=== PATIENT | male | born 1955 | race Caucasian/White ===

== ENCOUNTER 2017-03-28 04:39 | Emergency (ER) | payer BC, SELFPAY ==
[2017-03-28] MEDS ORDERED: Acetaminophen 500 MG TAB ONE (05:40)
--- NOTE | 2017-03-28 08:02 | RAD ---
SINGLE VIEW OF THE CHEST: COMPARISON: None. HISTORY: Chest trauma with chest pain. FINDINGS: Single view of the chest shows a normal sized cardiomediastinal silhouette. There is no evidence of c onsolidation, mass, or pleural effusion. The bones are unremarkable. IMPRESSION: No evidence of acute cardiopulmonary disease. POS: OFF
--- NOTE | 2017-03-28 08:56 | RAD ---
THREE VIEWS LEFT SHOULDER: COMPARISON: None. HISTORY: Left shoulder pain after trauma. FINDINGS: Three views of the left shoulder show no evidence of acute fracture or dislocation. There are mild d egenerative changes in the glenohumeral and acromioclavicular joints. The visualized left thorax is unremarkable. IMPRESSION: Mild left shoulder degenerative change without acute osseous abnormality. POS: OFF
== END 2017-03-28 06:05 | disposition home or self-care (01) ==
LOC: ERS 04:39
DX: S46.912A Strain of unspecified muscle, fascia and tendon at shoulder and upper arm level, left arm, initial encounter (principal); E11.9 Type 2 diabetes mellitus without complications; Z79.84 Long term (current) use of oral hypoglycemic drugs; V69.9XXA Occupant (driver) (passenger) of heavy transport vehicle injured in unspecified traffic accident, initial encounter
CPT/HCPCS: 71045